=== PATIENT | male | born 1955 | race Caucasian/White ===

== ENCOUNTER 2017-01-17 06:11 | Day surgery (SDC) | payer BC ==
[2017-01-04 08:42] VITALS: BMI 24.2
[2017-01-17] MEDS ORDERED: Bupivacaine-Epi 0.25%-1:200,000 PF Inj ONE (07:14)
[2017-01-17] MEDS ORDERED: Lidocaine 1% Inj (20ml) ONE (07:14)
[2017-01-17] MEDS ORDERED: ceFAZolin IV 2 gm in Dextrose 1 GM/50 ML BAG IVPB ONE (07:15)
[2017-01-17] MEDS ORDERED: Propofol 10 mg/ml Inj (20 ML) ONE (07:37)
[2017-01-17] MEDS ORDERED: Midazolam 2 MG/2 ML VIAL ONE (07:37)
[2017-01-17] MEDS ORDERED: Lactated Ringer's 1,000 ML IV ONE ×2 (07:38→10:30)
--- NOTE | 2017-01-17 11:58 | PCM.SURG1 ---
Surgeon's Initial Post Op Note - Surgeon's Notes Surgeon: Dr. Dumas Insulation Board Back Tender: Chong myles PGY2 Type of Anesthesia: General Endo Pre-Operative Diagnosis: L inguinal hernia, lipoma of L arm, lipoma of back Operative Findings: lipoma, L inguinal hernia Post-Operative Diagnosis: Same Operation Performed: Robotic L inguinal hernia repair, excision of L arm lipoma and back lipoma Specimen/Specimens Removed: lipoma of L arm and back, L cord lipoma Estimated Blood Loss: EBL {In ML}: 40 Blood Products Given: N/A Drains Used: No Drains Post-Op Condition: Good Date of Surgery/Procedure: 01/17/17 Time of Surgery/Procedure: 11:59
[2017-01-17] MEDS ORDERED: HYDROmorphone 0.5 mg/0.5 ml ISec IVP PRN (11:59)
--- NOTE | 2017-01-17 12:03 | CP.SDSHP ---
Same Day Surgery H & P - History Proposed Procedure: robotic L inguinal hernia repair, excision of lipoma of back and L arm Pre-Op Diagnosis: Back and L arm lipoma, L inguinal hernia - Allergies Allergies: Allergies No Known Allergies Allergy (Verified 07/10/15 14:37) - Physical Exam General Appearance: NAD Vital Signs: Vital Signs 01/17/17 06:30 Temperature 97.6 F Pulse Rate 58 L Respiratory 20 Rate Blood Pressure 132/73 O2 Sat by Pulse 100 Oximetry Mental Status: Alert & Oriented x3 Neuro: WNL Heart: WNL Lungs: WNL GI: WNL - {Optional Preform as Required} Breast: WNL Abdomen: WNL Integument: WNL COMPENSATION AND BENEFITS ADVISOR: WNL - Impression Pt. Evaluated Today:Candidate for Anesthesia & Procedure: Yes Short Stay Discharge - Short Stay Discharge Admitting Diagnosis/Reason for Visit: LEFT INGUINAL HERNIA, LIPOMAS OF BACK & LEFT ARM Disposition: HOME/ ROUTINE Follow-up: follow up with Dr. Dumas in 1-2 weeks. Take pain med as needed. Take Antibiotic as prescribed. Ok to take shower in 2 days. Take dressings off. Keep steristrips on. No heavy lifting for 1 month . Instructions: Laparoscopic Herniorrhaphy (DC)
[2017-01-17] MEDS ORDERED: Lactated Ringer's 500 ML IV ONE (13:30)
[2017-01-17 13:54] VITALS: BP 127/80; PULSE 70; RESP 18; TEMP 96.3; O2SAT 100
--- NOTE | 2017-01-17 20:05 | OP ---
PROCEDURE DATE: 01/17/2017 PREOPERATIVE DIAGNOSES: 1. Left inguinal hernia. 2. Lipoma of mid upper back, 5 x 4 cm size. 3. Lipoma of the left posterior arm, 5 x 3 cm size. POSTOPERATIVE DIAGNOSES: 1. Left inguinal hernia. 2. Lipoma of mid upper back, 5 x 4 cm size. 3. Lipoma of the left posterior arm, 5 x 3 cm size. 4. 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 OPERATION DONE: 1. Robotic left inguinal hernia repair with a mesh. 2. Robotic excision of lipoma of the spermatic cord. 3. Excision of lipoma of mid upper back, 5 x 4 cm size. 4. Layered closure of the wound of the left upper back, 5 x 4 cm in size. 5. Excision of lipoma of the left posterior arm, 5 x 3 cm in size. 6. Layered closure of the wound, 5 x 3 cm in size. SURGEON: Suleman Dumas MD ROADSIDE MECHANIC: ILIANA Brink. Imtiaz was present from the beginning up till the end of the procedure, helped in the prepping and draping and placement of the port and docking and undocking of the robot and closure of the wound. SECOND ROADSIDE MECHANIC: CINTHYA Cunningham Y2 resident. ANESTHESIA: General endotracheal tube anesthesia. ESTIMATED BLOOD LOSS: Around 50 mL altogether. COMPLICATIONS: None. DRAIN: None. INTRAOPERATIVE FINDINGS: The patient had a left indirect inguinal hernia and also had a large lipoma of the cord. The patient also had lipoma of the mid upper back, 5 x 4 cm in size and also had a lipoma of the left posterior arm, intramuscular, 5 x 3 cm in size. INTRAOPERATIVE STEPS: This is a 61-year-old male who was diagnosed with left inguinal hernia as well as lipoma of the mid upper back and left arm. The patient was consented for the robotic left inguinal hernia repair with a mesh as well as excision of the lipoma of the upper back and left arm. The patient was brought to the OR, placed supine on the operating table. After induction of the anesthesia, the patient was placed in right lateral position and mid upper back as well as the left arm were prepped and draped in the usual sterile fashion. A transverse incision was made on mid upper back lipoma after incising skin and subcutaneous tissue, upper and lower flap was created. The lipoma appears to be extended to the underlying fascia and muscle. The lipoma was completely excised and sent to the table for pathology. The wound was irrigated. Hemostasis was achieved. The wound was closed in multiple layers. The upper and lower flap with the underlying fascia, subcutaneous tissue to the underlying fascia, another layer of subcutaneous tissue with 2-0 Vicryl, skin with 4-0 Monocryl and another layer of the skin with 4-0 nylon. Dry sterile dressing was applied. Now the left arm lipoma was isolated and transverse incision was made of approximately 5 cm. After incising skin and subcutaneous tissue, the muscle was identified. The patient was found to have lipoma under the triceps muscle and the triceps muscle was divided vertically and lipoma was identified and lipoma was completely excised and it was sent to the table for the pathology. Now the wound was irrigated. The wound was closed in multiple layers. The muscle was approximated with 2-0 Vicryl interrupted suture, fascia with 3-0 Vicryl, subcutaneous tissue with 3-0 Vicryl, skin with 4-0 Monocryl and another layer of the skin with 4-0 nylon. Dry sterile dressing was applied. The patient tolerated the procedure well. Now the patient was placed in a supine position. Abdomen was prepped and draped in usual sterile fashion. A supraumbilical transverse incision was made after incising skin and subcutaneous tissue, the fascia was incised. Robotic camera port was placed. Pneumoperitoneum was created. Another two 8-mm ports were placed in the right and left upper quadrant and one dental assistant medical assistant port was placed. Robot was brought in, camera arm as well as arm 1 and arm 2 were docked. The peritoneum was dissected from the left side ASIS to midline and the dissection was carried down medially to the space of Retzius, lateral into the lateral abdominal wall. Dissection was carried down to dissect the peritoneal sac from the spermatic vessel as well as the mass sample and the peritoneal sac reduced back. The patient also found to have a large lipoma of the spermatic cord that was also reduced back and excised and it was sent to the table for pathology. After proper dissection, the mesh was implanted on the left side and after that, the peritoneum was sutured with 2-0 Vicryl V-Loc suture. All the instruments were taken out. The robot was undocked. All the ports were taken out under vision. Pneumoperitoneum was deflated. Umbilical port site was closed in 2 layers, fascia with 0 Vicryl, skin with a 4-0 Monocryl, and dry sterile dressing was applied. The patient tolerated the procedure well. Count of instrument was correct. There was no apparent complications. Suleman Dumas MD
== END 2017-01-17 14:46 | disposition home or self-care (01) ==
LOC: C.SDS 06:11
PROVIDERS: ATTEND Surgery Surgical Critical Care
DX: K40.90 Unilateral inguinal hernia, without obstruction or gangrene, not specified as recurrent (principal); D17.1 Benign lipomatous neoplasm of skin and subcutaneous tissue of trunk; D17.22 Benign lipomatous neoplasm of skin and subcutaneous tissue of left arm; D17.6 Benign lipomatous neoplasm of spermatic cord; J68.4 Chronic respiratory conditions due to chemicals, gases, fumes and vapors; F51.04 Psychophysiologic insomnia; M54.5 Low back pain; J30.9 Allergic rhinitis, unspecified; D72.1 Eosinophilia; E78.5 Hyperlipidemia, unspecified
CPT/HCPCS: 15836; 15839; 49505; 55520; 88304; C1781; J0690; J1100; J1170; J1885; J2250; J2405; J2704; J3010; J7120